=== PATIENT | female | born 1975 | race Caucasian/White ===

== ENCOUNTER → 2017-11-04 | Outpatient (CLI) | payer BC | LOC: COL.RAD 08:16 | DX: M19.032 Primary osteoarthritis, left wrist (principal); M25.432 Effusion, left wrist | CPT/HCPCS: A9585; Q9967 ==

== ENCOUNTER 2018-10-10 17:04 | Emergency (ER) | payer BC ==
[~2018-10-10] VITALS: Ht 165.1 cm; Wt 84.1 kg
[2018-10-10 17:16] VITALS: TEMP 97.2
[2018-10-10 18:39] LABS: BASO % 0.2 % (0.0-2.0); EOS # 0.1 (0.0-0.7); EOS % 0.7 % (0-4.0); GRAN # 6.3 (1.4-6.5); GRAN % 76.6 % (42.2-75.2); HEMATOCRIT 45.5 % (37.0-47.0); LYMPH # 1.3 (1.2-3.4); LYMPH % 15.9 % (20.0-51.0); MEAN CELL VOLUME 94 fl (80.0-100.0); MEAN CORPUSCULAR HEMOGLOBIN 31 pg (27.0-31.0); MEAN CORPUSCULAR HGB CONC 33 g/dl (33.0-37.0); MEAN PLATELET VOLUME 10.1 fl (7.4-10.4); MONO # 0.5 (0.1-0.6); MONO % 6.4 % (1.7-9.3); PLATELET COUNT 188 K/mm3 (130-400); RED BLOOD COUNT 4.83 M/mm3 (4.10-5.30); REDCELL DISTRIBUTION WIDTH-CV 12.8 % (11.5-14.5)
[2018-10-10 18:49] LABS: ALBUMIN 4.4 gm/dL (3.5-5.0); BILIRUBIN,TOTAL 0.5 mg/dL (0.0-1.0); CALCIUM 9.8 mg/dL (8.4-10.2); CREATININE, serum 0.75 (0.52-1.25); POTASSIUM 3.3 mmol/L (3.4-5.0); TOTAL PROTEIN 8.2 gm/dL (6.4-8.2)
[2018-10-10 19:11] LABS: COLLECTION METHOD CLEAN CATCH
[2018-10-10 19:16] LABS: MUCOUS Present /lpf; PH 5 (5-8); URINE APPEARANCE Clear; URINE BACTERIA Rare /hpf; URINE BILIRUBIN Negative (NEGATIVE); URINE BLOOD 1+ (NEGATIVE); URINE COLOR Yellow; URINE GLUCOSE Negative (NEGATIVE); URINE KETONE Trace (NEGATIVE); URINE LEUKOCYTE ESTERASE Negative (NEGATIVE); URINE NITRATE Negative (NEGATIVE); URINE PROTEIN(semi-quant) Negative (NEGATIVE); URINE RBC 0-2 /hpf; URINE UROBILINOGEN Negative (NEGATIVE)
[2018-10-10 20:05] VITALS: BP 146/79; PULSE 59
[2018-10-10] MEDS ORDERED: CEPHALEXIN500 M1 PO (20:09)
[2018-10-10] MEDS ORDERED: LEXAPRO 10MG10 MG PO (20:10)
[2018-10-10] MEDS ORDERED: ULTRAM 50MG TAB50 MG PO (20:10)
== END 2018-10-10 20:20 | disposition home or self-care (01) ==
LOC: COL.ER 17:04
PROVIDERS: Physician Assistant
DX: K59.9 Functional intestinal disorder, unspecified (principal); Z79.899 Other long term (current) drug therapy; Z98.890 Other specified postprocedural states

== ENCOUNTER → 2018-10-13 | Outpatient (CLI) | payer BC ==
[~2018-10-13] MED LIST: CEPHALEXIN500 M1 PO; LEXAPRO 10MG10 MG PO; ULTRAM 50MG TAB50 MG PO
== END ==
LOC: COL.LAB 11:47
DX: R19.7 Diarrhea, unspecified (principal)

== ENCOUNTER → 2018-11-01 | Outpatient (CLI) | payer BC | LOC: COL.LAB 09:36 | DX: A04.72 Enterocolitis due to Clostridium difficile, not specified as recurrent (principal) ==

== ENCOUNTER → 2019-01-19 | Outpatient (CLI) | payer BC | LOC: MC.RAD 08:39 | DX: Z12.31 Encounter for screening mammogram for malignant neoplasm of breast (principal) ==

== ENCOUNTER → 2020-05-23 | Outpatient (CLI) | payer BC | LOC: MC.RAD | DX: Z12.31 Encounter for screening mammogram for malignant neoplasm of breast (principal) ==

== ENCOUNTER → 2023-06-23 | Outpatient (CLI) | payer BC ==
[2023-06-24 10:23] LABS: EBV NUCLEAR ANTIGEN IGG Positive (Negative)
[2023-06-24 10:24] LABS: EBV EARLY ANTIGEN IGG Positive (Negative)
[2023-06-24 10:25] LABS: EBV IGM AB Negative (Negative)
== END ==
LOC: COL.LAB 13:38
PROVIDERS: Internal Medicine
DX: E03.9 Hypothyroidism, unspecified (principal); R59.0 Localized enlarged lymph nodes